=== PATIENT | male | born 1940 | race Caucasian/White ===

== ENCOUNTER → 2018-04-04 15:33 | Outpatient (CLI) | payer OTHER, SELFPAY ==
[2018-04-04 16:27] LABS: Add Manual Diff / Slide Review NO; Basophils Percent Auto 0.3 % (0-2); Eosinophils Percent Auto 1.8 % (2-4); Hematocrit 43.9 % (41-53); Hemoglobin 14.9 g/dL (13.5-17.5); Lymphocytes Percent Auto 18.8 % (25-40); Mean Corpuscular HGB Conc 33.9 % (30-36); Mean Corpuscular Volume 97.2 fL (80-100); Monocytes Percent Auto 9.9 % (3-14); Neutrophils Absolute Auto 5600 /uL (3000-5900); Neutrophils Percent Auto 69.2 % (50-75); Platelet Count 174 X10^3/uL (150-400); Red Blood Cell Count 4.51 X10^6/uL (4.5-5.9); Red Cell Distribution Width 14.7 % (11.6-14.8); White Blood Cell Count 8.1 X10^3/uL (4.5-11.0)
[2018-04-04 16:33] LABS: Alanine Aminotransferase 26 IU/L (21-72); Albumin 3.9 g/dL (3.5-5.0); Albumin Globulin Ratio 1.4 (1.0-2.8); Alkaline Phosphatase 66 U/L (38-126); Aspartate Aminotransferase 14 IU/L (17-59); BUN Creatinine Ratio 16.7 (6-22); Bilirubin Total 0.7 mg/dL (0.2-1.3); Blood Urea Nitrogen 15 mg/dL (9-20); Calcium 9.3 mg/dL (8.4-10.2); Carbon Dioxide 30 mmol/L (22-32); Chloride 100 mmol/L (98-107); Estimated Glomerular Filt Rate > 60.0 mL/min (>60); Globulin 2.7 g/dL (1.7-4.1); Glucose 102 mg/dL (80-110); HEMOLYSIS < 15 (0-50); Potassium 4.1 mmol/L (3.4-5.1); Sodium 142 mmol/L (137-145); Total Protein 6.6 g/dL (6.3-8.2)
[2018-04-04 17:04] LABS: TSH w/ Reflex to FT4 1.37 uIU/mL (0.47-4.68)
== END ==
PROVIDERS: PCP Family Medicine; Visit Provider Family Medicine
DX: K31.9 Disease of stomach and duodenum, unspecified (principal); D12.6 Benign neoplasm of colon, unspecified; R68.81 Early satiety; R61 Generalized hyperhidrosis; R63.4 Abnormal weight loss
CPT/HCPCS: 36415; 80053; 84443; 85025

== ENCOUNTER → 2018-04-09 13:33 | Outpatient (CLI) | payer OTHER, SELFPAY ==
[2018-04-12 14:24] LABS: Fecal Immunochemical Test NOT DETECTED
== END ==
PROVIDERS: PCP Family Medicine; Visit Provider Family Medicine
DX: R68.81 Early satiety (principal)
CPT/HCPCS: 82274

== ENCOUNTER → 2018-07-02 08:26 | Outpatient (CLI) | payer OTHER, SELFPAY ==
--- NOTE | 2018-07-02 09:16 | PM.TREADMILL ---
Cardiac Stress Test Report Referral & Results Date Patient Seen: 07/02/18 Indication: Coronary artery disease Rest ECG: Incomplete right bundle branch block Procedure Note: After both written and verbal informed consent the patient had an IV started by the diagnostic imaging RN and then was hooked up to the treadmill monitoring system. The patient was then injected with the Christelle scan material. The Cardiolite was then immediately administered. The patient spent an additional 2-3 minutes on the monitoring system before this was discontinued The patient had a normal response to all infused materials. Impression: Normal response to infuse materials. Perfusion imaging, which will determine status of possible ischemia, will be reported separately Please note: Actual ECG tracings can be found in the PACS system.
--- NOTE | 2018-07-03 13:53 | DI.NM.S_ITS ---
DATE OF SERVICE: 07/02/2018 PROCEDURE: Pharmacological perfusion study. INDICATION: Dyspnea on exertion with known history of bypass surgery in 2009, hypertension, hyperlipidemia. RADIOPHARMACEUTICAL: 26.4 mCi technetium-99m Myoview IV was injected at stress, and 24.7 mCi technetium-99m Myoview IV was injected at rest. CARDIAC STRESS: Patient underwent IV Lexiscan perfusion study under the supervision of an attending staff using standard IV Lexiscan protocol. He remained hemodynamically stable. Baseline rhythm was sinus with right bundle branch block. During stress, there were no new obvious ischemic changes. There were no significant arrhythmias. RAW DATA: There appears to be increased subdiaphragmatic activity. GATED STUDY: Stress LV ejection fraction 74%. I don't see any obvious wall motion abnormalities. Resting end-diastolic volume 83 mL. No transient ischemic dilatation. TID ratio 1.05 and lung/heart ratio 0.31, which is within normal limits. MYOCARDIAL PERFUSION SCAN: Stress supine, resting supine, and stress prone images were compared to each other. It appears to be that patient has predominantly fixed small-sized [id number] decreased perfusion of basal inferolateral wall, suggestive of prior infarction. In addition to that, there appears to be small-sized moderate reversible ischemia of mid anterior wall, extending into the distal anterior septum, sparing the distal anterior wall and anterior apex. CONCLUSION: 1. There is a small-sized moderate reversible ischemia of mid anterior wall extending into the distal anterior septum, sparing distal anterior wall and anterior apex. Patient also has [id number] infarction of basal inferolateral wall. In comparison to study of October 2016, basal inferolateral fixed defect is old. However, mid anterior wall reversible ischemia and distal anterior septum reversible ischemia appears to be new. At that time, the patient had mid anterior wall defect which got improved during prone images, but in this study, prone images also had mid anterior wall and distal anteroseptal defect which was not seen during resting supine images. This is an abnormal myocardial perfusion study. Clemente Greer - DISTRIBUTION SUPERVISOR/fn/kv doc#: [id number]/job#: [id number] dd: 07/03/2018 12:40:00 dt: 07/03/2018 13:44:00 DICTATING MD/COPIES TO: Ashli Serrato MD ; Augie Orellana MD COPIES MNE: ISMAEL ; RAMONA
== END ==
PROVIDERS: PCP Family Medicine; Visit Provider Internal Medicine Cardiovascular Disease
DX: I25.10 Atherosclerotic heart disease of native coronary artery without angina pectoris (principal); I45.19 Other right bundle-branch block
CPT/HCPCS: 78452; 93016; 93017; 93018; A9502; J2785

== ENCOUNTER → 2018-07-03 09:45 | Outpatient (CLI) | payer OTHER, SELFPAY ==
--- NOTE | 2018-07-03 | DI.ECHO.S_ITS ---
[facility] +---------+ : : [address] [place] : : : : [id number] : : : : Phone: [phone]---------+ Echocardiogram Report + + :Name: OSCAR LANCE Study Date: 07/03/2018 Height: 69 in : :[facility] Exam Location: [facility] Weight: 176 lb : : Gender: Male BSA: 2.0 m2 : :: 1940 Age: 78 yrs BP: 135/75 mmHg: :Reason For Study: CAD : : Performed By: Kera Page : :Referring: MARTITA PACHECO : + + Interpretation Summary Normal sinus rhythm. Normal LV size, wall thickness, wall motion and left ventricular systolic function. The ejection fraction is estimated to be 50-55%. There is aortic sclerosis without stenosis. Otherwise no significant valvular abnormalities. Moderate left atrial enlargement. Mild right atrial enlargement. No prior study available for comparison. Procedure: A two-dimensional transthoracic echocardiogram with color flow and Doppler was performed. The study quality was technically adequate. Prior with images only from 10/18/2007. The patient was in normal sinus rhythm during the exam. Left Ventricle: The left ventricle is normal in size. There is normal left ventricular wall thickness. The ejection fraction is estimated to be 50-55%. Right Ventricle: The right ventricle is mild to moderately dilated. The right ventricular systolic function is normal. Atria: The left atrium is moderately dilated. The right atrium is mildly dilated. There is no Doppler evidence for an interatrial shunt. Mitral Valve: The mitral valve leaflets appear thickened, but open well. There is mild mitral annular calcification. There is trace mitral regurgitation. Aortic Valve: The aortic valve is trileaflet. The aortic valve is moderately calcified. Leaflet mobility is minimally reduced. There is no hemodynamically significant valvular aortic stenosis. No aortic regurgitation is present. Tricuspid Valve: The tricuspid valve is normal in structure but is abnormal in function. There is trace tricuspid regurgitation. Right ventricular systolic pressure is estimated to be 22 mmHg plus the clinically estimated CVP which cannot be estimated on this exam. Pulmonic Valve: The pulmonic valve is not well visualized. There is a trace or physiologic amount of pulmonic regurgitation. Great Vessels: The aortic root is mildly dilated. The ascending aorta is at the upper limits of normal in size. The aortic arch could not be visualized. The pulmonary is not well visualized. The inferior vena cava was not visualized. Pericardium/ Pleura There is no pericardial effusion. There is no pleural effusion. MMode/2D Measurements & Calculations LVIDd: 5.3 cm LVOT diam: 2.1 cm LVIDs: 3.4 cm Ao root diam: 4.2 cm FS: 35.2 % asc Aorta Diam: 3.4 cm EPSS: 0.11 cm IVSd: 0.96 cm LVPWd: 0.73 cm LV larose. diameter/BSA (cm/m^2): 2.7 LV sys. diameter/BSA (cm/m^2): 1.8 LA A2 area: 26.0 cm2 RA long axis: 5.6 cm LA A4 area: 24.1 cm2 RA area: 15.0 cm2 LA length (vol): 6.4 cm RA vol: 34.2 ml LA vol: 83.1 ml RA : 17.5 ml/m2 LA vol index: 42.5 ml/m2 RVD1 (basal): 4.8 cm TAPSE: 1.4 cm Doppler Measurements & Calculations Ao V2 max: 133.0 cm/sec LVOT Max Gerald: 96.3 cm/sec Ao V2 mean: 93.3 cm/sec LV V1 max P.7 mmHg Ao max P.1 mmHg LV V1 VTI: 24.2 cm Ao mean P.9 mmHg KENIA(I,D): 2.7 cm2 Ao V2 VTI: 30.0 cm KENIA(V,D): 2.4 cm2 sev ratio: 0.81 KENIA indexed to BSA (cm^2/m^2): 1.4 MV E max gerald: 55.8 cm/sec TR max gerald: 235.7 cm/sec MV A max gerald: 55.8 cm/sec TR max P.2 mmHg MV E/A: 1.0 PA V2 max: 63.6 cm/sec Med Peak E' Gerald: 4.9 cm/sec PA V2 mean: 45.9 cm/sec E/E' med: 11.5 PA mean P.92 mmHg Lat Peak E' Gerald: 7.4 cm/sec PA Accel Time: 0.12 sec E/E' lat: 7.5 E/e' average: 9.5 MV dec time: 0.19 sec MV P1/2t: 55.1 msec MV P1/2t max gerald: 56.3 cm/sec MVA(P1/2t): 4.0 cm2 Reading Physician:07:13 PM
== END ==
PROVIDERS: PCP Family Medicine; Visit Provider Internal Medicine Cardiovascular Disease
DX: I35.8 Other nonrheumatic aortic valve disorders (principal); I25.10 Atherosclerotic heart disease of native coronary artery without angina pectoris
CPT/HCPCS: 93306

== ENCOUNTER 2019-06-27 10:30 | Outpatient (RCR) | payer OTHER, SELFPAY ==
--- NOTE | 2019-05-14 17:30 | PT.OIE ---
Current Diagnoses Muscle weakness (generalized) (05/14/19) Other abnormalities of gait and mobility (05/14/19) Other fatigue (05/14/19) Other reduced mobility (05/14/19) Past Medical History (Last Updated 04/07/18 @ 21:12 by Gladis Ryan DO) Sleep apnea, unspecified (Chronic 03/16/12) Gout, unspecified (Inactive) GERD (gastroesophageal reflux disease) (Chronic 03/16/12) Vascular dementia without behavioral disturbance (Chronic) Other and unspecified hyperlipidemia (Chronic) CAD (coronary atherosclerotic disease) (Chronic) Primary open angle glaucoma (POAG) (Chronic 03/16/12) Essential hypertension (Chronic) Macrocytosis without anemia (Chronic 04/07/14) Diverticulosis of large intestine without hemorrhage (Chronic 08/26/15) Tubular adenoma of colon (Resolved 08/26/15) Impaired cognition (Chronic 06/02/17) Coronary artery disease (Chronic) Family hx of alcoholism (Chronic) GERD (gastroesophageal reflux disease) (Chronic) Glaucoma (Chronic ~1994) Gout (Chronic ~1994) Hearing deficit (Chronic) Hyperlipidemia (Chronic) Hypertension (Chronic ~1992) Kidney stones (Chronic) Myocardial infarction (Chronic ~1997) Osteoarthritis (Chronic) Shoulder pain (Chronic) Sleep apnea (Chronic) Chickenpox (Resolved) Measles (Resolved) Mumps (Resolved ~1988) Retinal detachment (Resolved ~1994) Anesthesia (Inactive) Past Surgical History (Last Updated 04/05/18 @ 09:05 by Claudia Whitehead) History of hip replacement (~2008) History of vasectomy Status post appendectomy (~1996) Status post coronary artery bypass graft (~2008) Status post eye surgery (~1994) Status post tonsillectomy and adenoidectomy Provider Visit Care Team Role Provider Type Gladis Ryan DO Attending Provider Physician Primary Care Provider Specialty: [facility] Address: [address] [place] [address], [facility] Email: [email or web address] Physical Therapy Initial Evaluation PT-OP-A Visit Information Start: 05/14/19 17:32 Freq: Status: Active Protocol: Document 05/14/19 16:45 DCW (Rec: 05/14/19 17:54 DCW [id number]) Out-Patient Physical Therapy Visit Information Visit Information Visit Type Initial Evaluation Visit Start Time 16:45 Visit Stop Time 17:30 Total Visit Minutes 45 Visit Number 1 Number of EARTH MOVING MACHINE OPERATOR Visits 0 Evaluation Information Evaluation Date 05/14/19 PT-OP-B Current Condition Start: 05/14/19 17:32 Freq: Status: Active Protocol: Document 05/14/19 16:45 DCW (Rec: 05/14/19 17:54 [facility] [id number]) Current Condition History of Current Condition Onset Date 4 years Current Complaints Fatigue, weakness, difficulty with mobility History of Current Condition Pt is an 79 year old male presenting with a 4 year history of decreasing mobility . Pt notes he does not get to go out and do much, and feels like he is getting weaker and having more difficulty getting around. Pt notes he has not had any falls, and goes out and walks daily, however his admits that it is overall less than one block. Pt's medical history is complicated by dementia, which is a large limiting factor in what he is able to go out and do. Treatment Goals Patient/Caregiver Goals Pt and would like him to be able to go for longer walks , preferably ~1/2 mile Prior Functional Status Baseline Function- ADL's Needs Assist Baseline Function- Mobility Needs Assist Personal Factors Other Personal Factors That May Effect Vascular dementia, sleep apnea Therapy/Recovery , gout, GERD, CAD, HTN, [place] PT-OP-C Subjective Start: 05/14/19 17:32 Freq: Status: Active Protocol: Document 05/14/19 16:45 DCW (Rec: 05/14/19 17:54 [facility] [id number]) OP-PT Subjective Patient Comments Patient Comments I think it started getting worse about four years ago. Patient Reported Progress Worse Patient Questionnaires Lower Extremity Functional Scale LEFS Score = 23.75 LEFS Impairment 60 to 79% Impaired (Score 17- 31) OP-PT Pain Assessment Pain Assessment Grid Paper Pain Assessment Grid Completed Yes Location Right Posterior Hip Intensity 2 Scale Used Numeric (1 - 10) PT-OP-D Balance Start: 05/14/19 17:32 Freq: Status: Active Protocol: Document 05/14/19 16:45 DCW (Rec: 05/14/19 17:54 PRW [id number]) OP-PT Balance Assessment Sitting Balance Static Sitting Balance Ability Normal Dynamic Sitting Balance Ability Normal Standing Balance Static Standing Balance Ability Fair Balance Tests Ledezma Balance Test Ledezma Balance Test Score 36/56 Ledezma Impairment Rating 20 to 39% Impaired (Score 34- 44) Ledezma Balance Assessment Evaluation Sitting to Standing Ability Independent w/Hands Unsupported Stance Safely- 2 minutes Sitting Unsupported, Feet on Floor Safely- 2 minutes Standing to Sitting Ability Assist, Control w/Hands Transfer Ability Safely, Hand Use Unsupported Stance- Eyes Closed 3 seconds Unsupported Stance- Eyes Open Independent, <30 seconds Reaching Forward Standing Safely, 5 inches Pick- Up Object From Floor Independent/Safe Look Behind Shoulder - Standing Turns Sideways Only Turning 360 Degrees Turns slowly, but safely Unsupported Stance, Alternating Feet on 2 Steps w/Minimum Assist Stair Unsupported Tandem Stance Small Step- 30 seconds Unilateral Leg Stance Lifts Leg/Unable to Hold Total Score Ledezma Total Score (out of 56 points) 36 Ledezma Impairment Rating 20 to 39% Impaired (Score 34- 44) Pereira Fall Scale Copyright Permission PT-OP-E Functional Tests Start: 05/14/19 17:32 Freq: Status: Active Protocol: Document 05/14/19 16:45 DCW (Rec: 05/14/19 17:54 DCW [id number]) Functional Tests 6 Minute Walk Test Distance 536' Device Used Cane Comments Multiple rest breaks, stopped test after 5:27 Timed Up and Go (TUG) Score 13.61 seconds Comments 3-trial average (16.34, 13.10, 11.38) TUG Impairment Rating 20 to <40% Impaired (Score 12- 13) PT-OP-G Mobility & Gait Start: 05/14/19 17:32 Freq: Status: Active Protocol: Document 05/14/19 16:45 DCW (Rec: 05/14/19 17:54 DCW [id number]) OP Gait Assessment Gait Gait Assistance Required: Standby Assistance Distance (Feet) 536 Assistive Devices Assistive Device Straight Cane Gait Deviations General Gait Pattern Decreased Stride Length Decreased Feet Clearance Flexed Trunk Factors Limiting Gait Function Factors Limiting Gait Function Decreased Activity Tolerance Decreased Strength PT-OP-M Strength Start: 05/14/19 17:32 Freq: Status: Active Protocol: Document 05/14/19 16:45 DCW (Rec: 05/14/19 17:54 DCW [id number]) Hip Strength Hip Manual Muscle Testing Right Flexion (L2) 4 Good Abduction 4- Good- Adduction 5 Normal External Rotation 4+ Good+ Internal Rotation 4- Good- Left Flexion (L2) 4 Good Abduction 4- Good- Adduction 5 Normal External Rotation 4 Good Internal Rotation 4- Good- Knee Strength Knee Manual Muscle Testing Right Flexion (S2) 4 Good Extension (L3) 5 Normal Left Flexion (S2) 4- Good- Extension (L3) 4+ Good+ Ankle/Foot Strength Ankle and Foot Manual Muscle Testing Right Dorsiflexion (L4) 4 Good Plantarflexion (S1) 4 Good Left Dorsiflexion (L4) 4 Good Plantarflexion (S1) 4 Good PT-OP-T Assessment and Plan Start: 05/14/19 17:32 Freq: Status: Active Protocol: Document 05/14/19 16:45 DCW (Rec: 05/14/19 17:54 [facility] [id number]) Physical Therapy Assessment Rehab Potential Rehabilitation Potential Good Evaluation Complexity Number of Personal Factors/Comorbidities 3 or More Number of Body Systems Impaired 3 Clinical Presentation at Evaluation Evolving Impairments Impairments Activity Tolerance Balance Gait Strength Goals Five Impairment Pt had a 3-trial average of 13 .61 seconds during TUG Fpc Goal (LTG) Pt to display a 3-trial average of <10 seconds during TUG LTG Duration 07/15/19 Four Impairment Pt scores 36/56 on Ledezma Fpc Goal (LTG) Pt to score 43/56 on Ledezma Balance Score to demonstrate decreased falls risk LTG Duration 07/15/19 Three Impairment Pt's gait speed during 6 MWT is 1.49 ft/sec Fpc Goal (LTG) Pt to ambulate at a speed o 1. 97 ft/sec during 6 MWT (for a total distance of 709'), which would be suggestive of a decrease in potential further functional decline LTG Duration 07/15/19 Two Impairment Pt unable to walk a full block with his Fpc Goal (LTG) Pt to walk 1/2 mile with his using LRAD LTG Duration 07/15/19 One Impairment Pt does not have an appropriate home exercise program Short Term Goal (STG) Pt and his will be independent and compliant with an appropriate HEP STG Duration 06/14/19 Assessment Summary Assessment Pt presents with signs and symptoms of general deconditioning with declining balance and activity tolerance . Pt's score of 36/56 on the Ledezma is indicative of an increased falls risk, and a gait speed of 1.49 ft/sec is a sign of further functional decline in the future. Pt's case history is complicated by dementia, which has limited his ability to participate in most of his normal activities, leading to increased sedentary lifestyle. Pt should benefit from skilled therapy focusing on improving activity tolerance, balance training, LE strengthening, and gait safety. Physical Therapy Plan Frequency and Duration Frequency of Treatment 2x/Week Duration of Treatment 10 weeks Plan of Care Start Date 05/14/19 Plan of Care End Date 07/23/19 Therapeutic Interventions Therapeutic Interventions Aquatic Therapy Balance Training Gait Training Home Exercise Program Neuromuscular Re-education Patient/Caregiver Education Self-Care/Home Management Soft Tissue Mobilization Therapeutic Activities Therapeutic Exercises Next Visit Focus/Plan Next Note Type Treatment Note Next Visit Plan Balance training, strengthening, increasing activity tolerance
--- NOTE | 2019-05-14 17:30 | PT.OPPOC ---
Current Diagnoses Muscle weakness (generalized) (05/14/19) Other abnormalities of gait and mobility (05/14/19) Other fatigue (05/14/19) Other reduced mobility (05/14/19) Provider Visit Care Team Role Provider Type Gladis Ryan DO Attending Provider Physician Primary Care Provider Specialty: Family Practice Address: [address] [place] [address] Email: [email or web address] Plan Of Care PT-OP-T Assessment and Plan Start: 05/14/19 17:32 Freq: Status: Active Protocol: Document 05/14/19 16:45 DCW (Rec: 05/14/19 17:54 DCW [id number]) Physical Therapy Assessment Rehab Potential Rehabilitation Potential Good Evaluation Complexity Number of Personal Factors/Comorbidities 3 or More Number of Body Systems Impaired 3 Clinical Presentation at Evaluation Evolving Impairments Impairments Activity Tolerance Balance Gait Strength Goals Five Impairment Pt had a 3-trial average of 13 .61 seconds during TUG Conflicts Analyst Goal (LTG) Pt to display a 3-trial average of <10 seconds during TUG LTG Duration 07/15/19 Four Impairment Pt scores 36/56 on Ledezma Skilled Nursing Goal (LTG) Pt to score 43/56 on Ledezma Balance Score to demonstrate decreased falls risk LTG Duration 07/15/19 Three Impairment Pt's gait speed during 6 MWT is 1.49 ft/sec Conflicts Analyst Goal (LTG) Pt to ambulate at a speed o 1. 97 ft/sec during 6 MWT (for a total distance of 709'), which would be suggestive of a decrease in potential further functional decline LTG Duration 07/15/19 Two Impairment Pt unable to walk a full block with his Skilled Nursing Goal (LTG) Pt to walk 1/2 mile with his using LRAD LTG Duration 07/15/19 One Impairment Pt does not have an appropriate home exercise program Short Term Goal (STG) Pt and his will be independent and compliant with an appropriate HEP STG Duration 06/14/19 Assessment Summary Assessment Pt presents with signs and symptoms of general deconditioning with declining balance and activity tolerance . Pt's score of 36/56 on the Ledezma is indicative of an increased falls risk, and a gait speed of 1.49 ft/sec is a sign of further functional decline in the future. Pt's case history is complicated by dementia, which has limited his ability to participate in most of his normal activities, leading to increased sedentary lifestyle. Pt should benefit from skilled therapy focusing on improving activity tolerance, balance training, LE strengthening, and gait safety. Physical Therapy Plan Frequency and Duration Frequency of Treatment 2x/Week Duration of Treatment 10 weeks Plan of Care Start Date 05/14/19 Plan of Care End Date 07/23/19 Therapeutic Interventions Therapeutic Interventions Aquatic Therapy Balance Training Gait Training Home Exercise Program Neuromuscular Re-education Patient/Caregiver Education Self-Care/Home Management Soft Tissue Mobilization Therapeutic Activities Therapeutic Exercises Next Visit Focus/Plan Next Note Type Treatment Note Next Visit Plan Balance training, strengthening, increasing activity tolerance Plan of Care Dates Plan of Care Start Date 05/14/19 Plan of Care End Date 07/23/19 Please Sign and Return: I have reviewed this Plan of Care and certify that the skilled therapy services above are required to meet the patient?s needs. Physician Signature Date Printed Name and Credentials Clinical Instructor Signature Printed Name and Credentials
--- NOTE | 2019-05-17 12:56 | PT.OTN ---
Current Diagnoses Muscle weakness (generalized) (05/17/19) Other abnormalities of gait and mobility (05/17/19) Other fatigue (05/17/19) Other reduced mobility (05/17/19) Physical Therapy Treatment Note PT-OP-A Visit Information Start: 05/14/19 17:32 Freq: Status: Active Protocol: Document 05/17/19 12:15 DCW (Rec: 05/17/19 12:56 DCW [id number]) Out-Patient Physical Therapy Visit Information Visit Information Visit Type Treatment Note Visit Note Pt arrived 15 minutes late Visit Start Time 12:15 Visit Stop Time 12:45 Total Visit Minutes 30 Visit Number 2 Number of DIRECTOR OF BUSINESS DEVELOPMENT Visits 0 Evaluation Information Evaluation Date 05/14/19 PT-OP-B Current Condition Start: 05/14/19 17:32 Freq: Status: Active Protocol: Document 05/14/19 16:45 DCW (Rec: 05/14/19 17:54 DCW [id number]) Current Condition History of Current Condition Onset Date 4 years Current Complaints Fatigue, weakness, difficulty with mobility History of Current Condition Pt is an 79 year old male presenting with a 4 year history of decreasing mobility . Pt notes he does not get to go out and do much, and feels like he is getting weaker and having more difficulty getting around. Pt notes he has not had any falls, and goes out and walks daily, however his admits that it is overall less than one block. Pt's medical history is complicated by dementia, which is a large limiting factor in what he is able to go out and do. Treatment Goals Patient/Caregiver Goals Pt and would like him to be able to go for longer walks , preferably ~1/2 mile Prior Functional Status Baseline Function- ADL's Needs Assist Baseline Function- Mobility Needs Assist Personal Factors Other Personal Factors That May Effect Vascular dementia, sleep apnea Therapy/Recovery , gout, GERD, CAD, HTN, [place] PT-OP-C Subjective Start: 05/14/19 17:32 Freq: Status: Active Protocol: Document 05/14/19 16:45 DCW (Rec: 05/14/19 17:54 DCW [id number]) OP-PT Subjective Patient Comments Patient Comments I think it started getting worse about four years ago. Patient Reported Progress Worse Patient Questionnaires Lower Extremity Functional Scale LEFS Score = 23.75 LEFS Impairment 60 to 79% Impaired (Score 17- 31) OP-PT Pain Assessment Pain Assessment Grid Paper Pain Assessment Grid Completed Yes Location Right Posterior Hip Intensity 2 Scale Used Numeric (1 - 10) PT-OP-D Balance Start: 05/14/19 17:32 Freq: Status: Active Protocol: Document 05/14/19 16:45 DCW (Rec: 05/14/19 17:54 DCW [id number]) OP-PT Balance Assessment Sitting Balance Static Sitting Balance Ability Normal Dynamic Sitting Balance Ability Normal Standing Balance Static Standing Balance Ability Fair Balance Tests Ledezma Balance Test Ledezma Balance Test Score 36/56 Ledezma Impairment Rating 20 to 39% Impaired (Score 34- 44) Ledezma Balance Assessment Evaluation Sitting to Standing Ability Independent w/Hands Unsupported Stance Safely- 2 minutes Sitting Unsupported, Feet on Floor Safely- 2 minutes Standing to Sitting Ability Assist, Control w/Hands Transfer Ability Safely, Hand Use Unsupported Stance- Eyes Closed 3 seconds Unsupported Stance- Eyes Open Independent, <30 seconds Reaching Forward Standing Safely, 5 inches Pick- Up Object From Floor Independent/Safe Look Behind Shoulder - Standing Turns Sideways Only Turning 360 Degrees Turns slowly, but safely Unsupported Stance, Alternating Feet on 2 Steps w/Minimum Assist Stair Unsupported Tandem Stance Small Step- 30 seconds Unilateral Leg Stance Lifts Leg/Unable to Hold Total Score Ledezma Total Score (out of 56 points) 36 Ledezma Impairment Rating 20 to 39% Impaired (Score 34- 44) Pereira Fall Scale Copyright Permission PT-OP-E Functional Tests Start: 05/14/19 17:32 Freq: Status: Active Protocol: Document 05/14/19 16:45 DCW (Rec: 05/14/19 17:54 DCW [id number]) Functional Tests 6 Minute Walk Test Distance 536' Device Used Cane Comments Multiple rest breaks, stopped test after 5:27 Timed Up and Go (TUG) Score 13.61 seconds Comments 3-trial average (16.34, 13.10, 11.38) TUG Impairment Rating 20 to <40% Impaired (Score 12- 13) PT-OP-G Mobility & Gait Start: 05/14/19 17:32 Freq: Status: Active Protocol: Document 05/14/19 16:45 DCW (Rec: 05/14/19 17:54 DCW [id number]) OP Gait Assessment Gait Gait Assistance Required: Standby Assistance Distance (Feet) 536 Assistive Devices Assistive Device Straight Cane Gait Deviations General Gait Pattern Decreased Stride Length Decreased Feet Clearance Flexed Trunk Factors Limiting Gait Function Factors Limiting Gait Function Decreased Activity Tolerance Decreased Strength PT-OP-M Strength Start: 05/14/19 17:32 Freq: Status: Active Protocol: Document 05/14/19 16:45 DCW (Rec: 05/14/19 17:54 DCW [id number]) Hip Strength Hip Manual Muscle Testing Right Flexion (L2) 4 Good Abduction 4- Good- Adduction 5 Normal External Rotation 4+ Good+ Internal Rotation 4- Good- Left Flexion (L2) 4 Good Abduction 4- Good- Adduction 5 Normal External Rotation 4 Good Internal Rotation 4- Good- Knee Strength Knee Manual Muscle Testing Right Flexion (S2) 4 Good Extension (L3) 5 Normal Left Flexion (S2) 4- Good- Extension (L3) 4+ Good+ Ankle/Foot Strength Ankle and Foot Manual Muscle Testing Right Dorsiflexion (L4) 4 Good Plantarflexion (S1) 4 Good Left Dorsiflexion (L4) 4 Good Plantarflexion (S1) 4 Good PT-OP-Q Treatments Start: 05/14/19 17:32 Freq: Status: Active Protocol: Document 05/17/19 12:15 DCW (Rec: 05/17/19 12:56 DCW [id number]) Cardio Equipment Recumbent Elliptical (Biodex) Duration (Minutes) 5 Resistance 5 Seat Position 10 Gym Equipment Shuttle Recovery Unilateral Squats Resistance 37# Shuttle Recovery Platform Stable Bilateral Squats Resistance 75# Shuttle Recovery Platform Stable Therapeutic Exercises Other Exercises Resisted Side-stepping Other Exercise Name Resisted Side-stepping Resistance Yellow Equipment Used T-band Neuro Re-Education Treatment Balance Activities Standing Marching Details Standing Marching Surface Green Foam Double leg stance Details DL stance Surface Jaeger Foam Semi-tandem stance Details Semi-tandem stance Surface Firm Equipment @ rail PT-OP-T Assessment and Plan Start: 05/14/19 17:32 Freq: Status: Active Protocol: Document 05/17/19 12:15 DCW (Rec: 05/17/19 12:56 DCW [id number]) Physical Therapy Assessment Impairments Impairments Activity Tolerance Balance Gait Strength Goals Five Impairment Pt had a 3-trial average of 13 .61 seconds during TUG Barrel Raiser Helper Goal (LTG) Pt to display a 3-trial average of <10 seconds during TUG LTG Duration 07/15/19 Four Impairment Pt scores 36/56 on Ledezma Halfway Goal (LTG) Pt to score 43/56 on Ledezma Balance Score to demonstrate decreased falls risk LTG Duration 07/15/19 Three Impairment Pt's gait speed during 6 MWT is 1.49 ft/sec Barrel Raiser Helper Goal (LTG) Pt to ambulate at a speed o 1. 97 ft/sec during 6 MWT (for a total distance of 709'), which would be suggestive of a decrease in potential further functional decline LTG Duration 07/15/19 Two Impairment Pt unable to walk a full block with his Barrel Raiser Helper Goal (LTG) Pt to walk 1/2 mile with his using LRAD LTG Duration 07/15/19 One Impairment Pt does not have an appropriate home exercise program Short Term Goal (STG) Pt and his will be independent and compliant with an appropriate HEP STG Duration 06/14/19 Assessment Summary Assessment Pt required seated rest break 15 minutes into 30 minute session, and required repeated directions and verbal cues for safety during his appointment. Physical Therapy Plan Frequency and Duration Frequency of Treatment 2x/Week Duration of Treatment 10 weeks Plan of Care Start Date 05/14/19 Plan of Care End Date 07/23/19 Therapeutic Interventions Therapeutic Interventions Aquatic Therapy Balance Training Gait Training Home Exercise Program Neuromuscular Re-education Patient/Caregiver Education Self-Care/Home Management Soft Tissue Mobilization Therapeutic Activities Therapeutic Exercises Next Visit Focus/Plan Next Note Type Treatment Note Next Visit Plan Balance training, strengthening, increasing activity tolerance
--- NOTE | 2019-05-20 12:51 | PT.OTN ---
Current Diagnoses Muscle weakness (generalized) (05/20/19) Other abnormalities of gait and mobility (05/20/19) Other fatigue (05/20/19) Other reduced mobility (05/20/19) Physical Therapy Treatment Note PT-OP-A Visit Information Start: 05/14/19 17:32 Freq: Status: Active Protocol: Document 05/20/19 09:45 AMB (Rec: 05/20/19 09:59 AMB [id number]) Out-Patient Physical Therapy Visit Information Visit Information Visit Type Treatment Note Visit Note Pt arrived 5 min late Visit Start Time 09:50 Visit Stop Time 10:30 Total Visit Minutes 40 Visit Number 3 PT-OP-B Current Condition Start: 05/14/19 17:32 Freq: Status: Active Protocol: Document 05/14/19 16:45 DCW (Rec: 05/14/19 17:54 DCW [id number]) Current Condition History of Current Condition Onset Date 4 years Current Complaints Fatigue, weakness, difficulty with mobility History of Current Condition Pt is an 79 year old male presenting with a 4 year history of decreasing mobility . Pt notes he does not get to go out and do much, and feels like he is getting weaker and having more difficulty getting around. Pt notes he has not had any falls, and goes out and walks daily, however his admits that it is overall less than one block. Pt's medical history is complicated by dementia, which is a large limiting factor in what he is able to go out and do. Treatment Goals Patient/Caregiver Goals Pt and would like him to be able to go for longer walks , preferably ~1/2 mile Prior Functional Status Baseline Function- ADL's Needs Assist Baseline Function- Mobility Needs Assist Personal Factors Other Personal Factors That May Effect Vascular dementia, sleep apnea Therapy/Recovery , gout, GERD, CAD, HTN, [place] PT-OP-C Subjective Start: 05/14/19 17:32 Freq: Status: Active Protocol: Document 05/20/19 09:45 AMB (Rec: 05/20/19 09:59 AMB [id number]) OP-PT Subjective Patient Comments Patient Comments Pt reports shortness of breath limits his exercise. PT-OP-D Balance Start: 05/14/19 17:32 Freq: Status: Active Protocol: Document 05/14/19 16:45 DCW (Rec: 05/14/19 17:54 [facility] [id number]) OP-PT Balance Assessment Sitting Balance Static Sitting Balance Ability Normal Dynamic Sitting Balance Ability Normal Standing Balance Static Standing Balance Ability Fair Balance Tests Ledezma Balance Test Ledezma Balance Test Score 36/56 Ledezma Impairment Rating 20 to 39% Impaired (Score 34- 44) Ledezma Balance Assessment Evaluation Sitting to Standing Ability Independent w/Hands Unsupported Stance Safely- 2 minutes Sitting Unsupported, Feet on Floor Safely- 2 minutes Standing to Sitting Ability Assist, Control w/Hands Transfer Ability Safely, Hand Use Unsupported Stance- Eyes Closed 3 seconds Unsupported Stance- Eyes Open Independent, <30 seconds Reaching Forward Standing Safely, 5 inches Pick- Up Object From Floor Independent/Safe Look Behind Shoulder - Standing Turns Sideways Only Turning 360 Degrees Turns slowly, but safely Unsupported Stance, Alternating Feet on 2 Steps w/Minimum Assist Stair Unsupported Tandem Stance Small Step- 30 seconds Unilateral Leg Stance Lifts Leg/Unable to Hold Total Score Ledezma Total Score (out of 56 points) 36 Ledezma Impairment Rating 20 to 39% Impaired (Score 34- 44) Pereira Fall Scale Copyright Permission PT-OP-E Functional Tests Start: 05/14/19 17:32 Freq: Status: Active Protocol: Document 05/14/19 16:45 DCW (Rec: 05/14/19 17:54 [facility] [id number]) Functional Tests 6 Minute Walk Test Distance 536' Device Used Cane Comments Multiple rest breaks, stopped test after 5:27 Timed Up and Go (TUG) Score 13.61 seconds Comments 3-trial average (16.34, 13.10, 11.38) TUG Impairment Rating 20 to <40% Impaired (Score 12- 13) PT-OP-G Mobility & Gait Start: 05/14/19 17:32 Freq: Status: Active Protocol: Document 05/14/19 16:45 DCW (Rec: 05/14/19 17:54 DCW [id number]) OP Gait Assessment Gait Gait Assistance Required: Standby Assistance Distance (Feet) 536 Assistive Devices Assistive Device Straight Cane Gait Deviations General Gait Pattern Decreased Stride Length Decreased Feet Clearance Flexed Trunk Factors Limiting Gait Function Factors Limiting Gait Function Decreased Activity Tolerance Decreased Strength PT-OP-M Strength Start: 05/14/19 17:32 Freq: Status: Active Protocol: Document 05/14/19 16:45 DCW (Rec: 05/14/19 17:54 DCW [id number]) Hip Strength Hip Manual Muscle Testing Right Flexion (L2) 4 Good Abduction 4- Good- Adduction 5 Normal External Rotation 4+ Good+ Internal Rotation 4- Good- Left Flexion (L2) 4 Good Abduction 4- Good- Adduction 5 Normal External Rotation 4 Good Internal Rotation 4- Good- Knee Strength Knee Manual Muscle Testing Right Flexion (S2) 4 Good Extension (L3) 5 Normal Left Flexion (S2) 4- Good- Extension (L3) 4+ Good+ Ankle/Foot Strength Ankle and Foot Manual Muscle Testing Right Dorsiflexion (L4) 4 Good Plantarflexion (S1) 4 Good Left Dorsiflexion (L4) 4 Good Plantarflexion (S1) 4 Good PT-OP-Q Treatments Start: 05/14/19 17:32 Freq: Status: Active Protocol: Document 05/20/19 09:45 AMB (Rec: 05/20/19 10:11 AMB [id number]) Cardio Equipment Recumbent Elliptical (Biodex) Duration (Minutes) 5 Resistance 5 Seat Position 10 Neuro Re-Education Treatment Balance Activities Standing Marching Details Standing Marching Surface Green Foam Double leg stance Details DL stance Surface Jaeger Foam Semi-tandem stance Details Semi-tandem stance Surface Firm Equipment @ rail PT-OP-T Assessment and Plan Start: 05/14/19 17:32 Freq: Status: Active Protocol: Document 05/20/19 09:45 AMB (Rec: 05/20/19 10:11 AMB [id number]) Physical Therapy Assessment Assessment Summary Assessment Pt arrived late and then needed a long bathroom break. Continues to require verbal cues for safety. Physical Therapy Plan Next Visit Focus/Plan Next Note Type Treatment Note Next Visit Plan Balance training, strengthening, increasing activity tolerance
--- NOTE | 2019-06-27 11:11 | PT.OTN ---
Current Diagnoses Muscle weakness (generalized) (06/27/19) Other abnormalities of gait and mobility (06/27/19) Other fatigue (06/27/19) Other reduced mobility (06/27/19) Physical Therapy Treatment Note PT-OP-A Visit Information Start: 05/14/19 17:32 Freq: Status: Active Protocol: Document 06/27/19 10:30 DCW (Rec: 06/27/19 11:11 DCW [id number]) Out-Patient Physical Therapy Visit Information Visit Information Visit Type Treatment Note Visit Note Pt took 10 minute bathroom break mid-way through session Visit Start Time 10:30 Visit Stop Time 11:15 Total Visit Minutes 35 Visit Number 4 Number of EQUIPMENT SCHEDULER Visits 0 Evaluation Information Evaluation Date 05/14/19 PT-OP-B Current Condition Start: 05/14/19 17:32 Freq: Status: Active Protocol: Document 05/14/19 16:45 DCW (Rec: 05/14/19 17:54 DCW [id number]) Current Condition History of Current Condition Onset Date 4 years Current Complaints Fatigue, weakness, difficulty with mobility History of Current Condition Pt is an 79 year old male presenting with a 4 year history of decreasing mobility . Pt notes he does not get to go out and do much, and feels like he is getting weaker and having more difficulty getting around. Pt notes he has not had any falls, and goes out and walks daily, however his admits that it is overall less than one block. Pt's medical history is complicated by dementia, which is a large limiting factor in what he is able to go out and do. Treatment Goals Patient/Caregiver Goals Pt and would like him to be able to go for longer walks , preferably ~1/2 mile Prior Functional Status Baseline Function- ADL's Needs Assist Baseline Function- Mobility Needs Assist Personal Factors Other Personal Factors That May Effect Vascular dementia, sleep apnea Therapy/Recovery , gout, GERD, CAD, HTN, [place] PT-OP-C Subjective Start: 05/14/19 17:32 Freq: Status: Active Protocol: Document 06/27/19 10:30 DCW (Rec: 06/27/19 11:11 DCW [id number]) OP-PT Subjective Patient Comments Patient Comments Pt reports he has been doing fairly well today. PT-OP-D Balance Start: 05/14/19 17:32 Freq: Status: Active Protocol: Document 05/14/19 16:45 DCW (Rec: 05/14/19 17:54 DCW [id number]) OP-PT Balance Assessment Sitting Balance Static Sitting Balance Ability Normal Dynamic Sitting Balance Ability Normal Standing Balance Static Standing Balance Ability Fair Balance Tests Ledezma Balance Test Ledezma Balance Test Score 36/56 Ledezma Impairment Rating 20 to 39% Impaired (Score 34- 44) Ledezma Balance Assessment Evaluation Sitting to Standing Ability Independent w/Hands Unsupported Stance Safely- 2 minutes Sitting Unsupported, Feet on Floor Safely- 2 minutes Standing to Sitting Ability Assist, Control w/Hands Transfer Ability Safely, Hand Use Unsupported Stance- Eyes Closed 3 seconds Unsupported Stance- Eyes Open Independent, <30 seconds Reaching Forward Standing Safely, 5 inches Pick- Up Object From Floor Independent/Safe Look Behind Shoulder - Standing Turns Sideways Only Turning 360 Degrees Turns slowly, but safely Unsupported Stance, Alternating Feet on 2 Steps w/Minimum Assist Stair Unsupported Tandem Stance Small Step- 30 seconds Unilateral Leg Stance Lifts Leg/Unable to Hold Total Score Ledezma Total Score (out of 56 points) 36 Ledezma Impairment Rating 20 to 39% Impaired (Score 34- 44) Pereira Fall Scale Copyright Permission PT-OP-E Functional Tests Start: 05/14/19 17:32 Freq: Status: Active Protocol: Document 05/14/19 16:45 DCW (Rec: 05/14/19 17:54 [facility] [id number]) Functional Tests 6 Minute Walk Test Distance 536' Device Used Cane Comments Multiple rest breaks, stopped test after 5:27 Timed Up and Go (TUG) Score 13.61 seconds Comments 3-trial average (16.34, 13.10, 11.38) TUG Impairment Rating 20 to <40% Impaired (Score 12- 13) PT-OP-G Mobility & Gait Start: 05/14/19 17:32 Freq: Status: Active Protocol: Document 05/14/19 16:45 DCW (Rec: 05/14/19 17:54 DC [id number]) OP Gait Assessment Gait Gait Assistance Required: Standby Assistance Distance (Feet) 536 Assistive Devices Assistive Device Straight Cane Gait Deviations General Gait Pattern Decreased Stride Length Decreased Feet Clearance Flexed Trunk Factors Limiting Gait Function Factors Limiting Gait Function Decreased Activity Tolerance Decreased Strength PT-OP-M Strength Start: 05/14/19 17:32 Freq: Status: Active Protocol: Document 05/14/19 16:45 DCW (Rec: 05/14/19 17:54 DCW [id number]) Hip Strength Hip Manual Muscle Testing Right Flexion (L2) 4 Good Abduction 4- Good- Adduction 5 Normal External Rotation 4+ Good+ Internal Rotation 4- Good- Left Flexion (L2) 4 Good Abduction 4- Good- Adduction 5 Normal External Rotation 4 Good Internal Rotation 4- Good- Knee Strength Knee Manual Muscle Testing Right Flexion (S2) 4 Good Extension (L3) 5 Normal Left Flexion (S2) 4- Good- Extension (L3) 4+ Good+ Ankle/Foot Strength Ankle and Foot Manual Muscle Testing Right Dorsiflexion (L4) 4 Good Plantarflexion (S1) 4 Good Left Dorsiflexion (L4) 4 Good Plantarflexion (S1) 4 Good PT-OP-Q Treatments Start: 05/14/19 17:32 Freq: Status: Active Protocol: Document 06/27/19 10:30 DCW (Rec: 06/27/19 11:11 DCW [id number]) Cardio Equipment Recumbent Stepper (Sci-Fit) Duration (Minutes) 5 Resistance 3 Seat Position 11 Gym Equipment Shuttle Recovery Unilateral Squats Resistance 37# Shuttle Recovery Platform Stable Bilateral Squats Resistance 75# Shuttle Recovery Platform Stable Therapeutic Exercises Other Exercises Resisted Side-stepping Other Exercise Name Resisted Side-stepping Resistance Yellow Equipment Used T-band Neuro Re-Education Treatment Balance Activities Standing Marching Details Standing Marching Surface Green Foam Semi-tandem stance Details Semi-tandem stance Surface Firm Equipment @ rail PT-OP-T Assessment and Plan Start: 05/14/19 17:32 Freq: Status: Active Protocol: Document 06/27/19 10:30 DCW (Rec: 06/27/19 11:11 DCW [id number]) Physical Therapy Assessment Impairments Impairments Activity Tolerance Balance Gait Strength Goals Five Impairment Pt had a 3-trial average of 13 .61 seconds during TUG Nursing Home Goal (LTG) Pt to display a 3-trial average of <10 seconds during TUG LTG Duration 07/15/19 Four Impairment Pt scores 36/56 on Ledezma Nursing Home Goal (LTG) Pt to score 43/56 on Ledezma Balance Score to demonstrate decreased falls risk LTG Duration 07/15/19 Three Impairment Pt's gait speed during 6 MWT is 1.49 ft/sec Nursing Home Goal (LTG) Pt to ambulate at a speed o 1. 97 ft/sec during 6 MWT (for a total distance of 709'), which would be suggestive of a decrease in potential further functional decline LTG Duration 07/15/19 Two Impairment Pt unable to walk a full block with his Nursing Home Goal (LTG) Pt to walk 1/2 mile with his using LRAD LTG Duration 07/15/19 One Impairment Pt does not have an appropriate home exercise program Short Term Goal (STG) Pt and his will be independent and compliant with an appropriate HEP STG Duration 06/14/19 Assessment Summary Assessment Pt still requiring multiple rest breaks throughout session , unable to tolerate any extended activity. Physical Therapy Plan Frequency and Duration Frequency of Treatment 2x/Week Duration of Treatment 10 weeks Plan of Care Start Date 05/14/19 Plan of Care End Date 07/23/19 Therapeutic Interventions Therapeutic Interventions Aquatic Therapy Balance Training Gait Training Home Exercise Program Neuromuscular Re-education Patient/Caregiver Education Self-Care/Home Management Soft Tissue Mobilization Therapeutic Activities Therapeutic Exercises Next Visit Focus/Plan Next Note Type Treatment Note Next Visit Plan Balance training, strengthening, increasing activity tolerance
--- NOTE | 2019-08-27 15:10 | PT.OPDS ---
Current Diagnoses Muscle weakness (generalized) (06/27/19) Other abnormalities of gait and mobility (06/27/19) Other fatigue (06/27/19) Other reduced mobility (06/27/19) Visit Care Team Role Provider Type Gladis Ryan DO Attending Provider Physician Primary Care Provider Specialty: Family Practice Address: [address] [place] [address], [address], [facility] Email: [email or web address] Visit Number Visit Number 4 Discharge Summary PT-OP-B Current Condition Start: 05/14/19 17:32 Freq: Status: Active Protocol: Document 05/14/19 16:45 DCW (Rec: 05/14/19 17:54 DCW [id number]) Current Condition History of Current Condition Onset Date 4 years Current Complaints Fatigue, weakness, difficulty with mobility History of Current Condition Pt is an 79 year old male presenting with a 4 year history of decreasing mobility . Pt notes he does not get to go out and do much, and feels like he is getting weaker and having more difficulty getting around. Pt notes he has not had any falls, and goes out and walks daily, however his admits that it is overall less than one block. Pt's medical history is complicated by dementia, which is a large limiting factor in what he is able to go out and do. Treatment Goals Patient/Caregiver Goals Pt and would like him to be able to go for longer walks , preferably ~1/2 mile Prior Functional Status Baseline Function- ADL's Needs Assist Baseline Function- Mobility Needs Assist Personal Factors Other Personal Factors That May Effect Vascular dementia, sleep apnea Therapy/Recovery , gout, GERD, CAD, HTN, [place] PT-OP-C Subjective Start: 05/14/19 17:32 Freq: Status: Active Protocol: Document 06/27/19 10:30 DCW (Rec: 06/27/19 11:11 DCW [id number]) OP-PT Subjective Patient Comments Patient Comments Pt reports he has been doing fairly well today. PT-OP-D Balance Start: 05/14/19 17:32 Freq: Status: Active Protocol: Document 05/14/19 16:45 DCW (Rec: 05/14/19 17:54 DCW [id number]) OP-PT Balance Assessment Sitting Balance Static Sitting Balance Ability Normal Dynamic Sitting Balance Ability Normal Standing Balance Static Standing Balance Ability Fair Balance Tests Ledezma Balance Test L[place] Balance Test Score 36/56 L[place] Impairment Rating 20 to 39% Impaired (Score 34- 44) [place] Balance Assessment Evaluation Sitting to Standing Ability Independent w/Hands Unsupported Stance Safely- 2 minutes Sitting Unsupported, Feet on Floor Safely- 2 minutes Standing to Sitting Ability Assist, Control w/Hands Transfer Ability Safely, Hand Use Unsupported Stance- Eyes Closed 3 seconds Unsupported Stance- Eyes Open Independent, <30 seconds Reaching Forward Standing Safely, 5 inches Pick- Up Object From Floor Independent/Safe Look Behind Shoulder - Standing Turns Sideways Only Turning 360 Degrees Turns slowly, but safely Unsupported Stance, Alternating Feet on 2 Steps w/Minimum Assist Stair Unsupported Tandem Stance Small Step- 30 seconds Unilateral Leg Stance Lifts Leg/Unable to Hold Total Score Ledezma Total Score (out of 56 points) 36 [place] Impairment Rating 20 to 39% Impaired (Score 34- 44) Pereira Fall Scale Copyright Permission PT-OP-E Functional Tests Start: 05/14/19 17:32 Freq: Status: Active Protocol: Document 05/14/19 16:45 DCW (Rec: 05/14/19 17:54 DCW [id number]) Functional Tests 6 Minute Walk Test Distance 536' Device Used Cane Comments Multiple rest breaks, stopped test after 5:27 Timed Up and Go (TUG) Score 13.61 seconds Comments 3-trial average (16.34, 13.10, 11.38) TUG Impairment Rating 20 to <40% Impaired (Score 12- 13) PT-OP-G Mobility & Gait Start: 05/14/19 17:32 Freq: Status: Active Protocol: Document 05/14/19 16:45 DCW (Rec: 05/14/19 17:54 DCW [id number]) OP Gait Assessment Gait Gait Assistance Required: Standby Assistance Distance (Feet) 536 Assistive Devices Assistive Device Straight Cane Gait Deviations General Gait Pattern Decreased Stride Length, Decreased Feet Clearance, Flexed Trunk Factors Limiting Gait Function Factors Limiting Gait Function Decreased Activity Tolerance, Decreased Strength PT-OP-M Strength Start: 05/14/19 17:32 Freq: Status: Active Protocol: Document 05/14/19 16:45 DCW (Rec: 05/14/19 17:54 DCW [id number]) Hip Strength Hip Manual Muscle Testing Right Flexion (L2) 4 Good Abduction 4- Good- Adduction 5 Normal External Rotation 4+ Good+ Internal Rotation 4- Good- Left Flexion (L2) 4 Good Abduction 4- Good- Adduction 5 Normal External Rotation 4 Good Internal Rotation 4- Good- Knee Strength Knee Manual Muscle Testing Right Flexion (S2) 4 Good Extension (L3) 5 Normal Left Flexion (S2) 4- Good- Extension (L3) 4+ Good+ Ankle/Foot Strength Ankle and Foot Manual Muscle Testing Right Dorsiflexion (L4) 4 Good Plantarflexion (S1) 4 Good Left Dorsiflexion (L4) 4 Good Plantarflexion (S1) 4 Good PT-OP-T Assessment and Plan Start: 05/14/19 17:32 Freq: Status: Active Protocol: Document 08/27/19 15:09 DCW (Rec: 08/27/19 15:10 DCW [id number]) Physical Therapy Assessment Goals Five Impairment Pt had a 3-trial average of 13 .61 seconds during TUG Jail Goal (LTG) Pt to display a 3-trial average of <10 seconds during TUG LTG Duration 07/15/19 Four Impairment Pt scores 36/56 on Ledezma Jail Goal (LTG) Pt to score 43/56 on Ledezma Balance Score to demonstrate decreased falls risk LTG Duration 07/15/19 Three Impairment Pt's gait speed during 6 MWT is 1.49 ft/sec [employer] Writer Prose Goal (LTG) Pt to ambulate at a speed o 1. 97 ft/sec during 6 MWT (for a total distance of 709'), which would be suggestive of a decrease in potential further functional decline LTG Duration 07/15/19 Two Impairment Pt unable to walk a full block with his [employer] Writer Prose Goal (LTG) Pt to walk 1/2 mile with his using LRAD LTG Duration 07/15/19 One Impairment Pt does not have an appropriate home exercise program Short Term Goal (STG) Pt and his will be independent and compliant with an appropriate HEP STG Duration 06/14/19 Assessment Summary Assessment Pt did not schedule any further visits following his last visit, and now has not been seen in two months. Pt will be discharged from skilled therapy at this time. Physical Therapy Plan Discharge Physical Therapy Discharge Reasons No Longer Attending PT Next Visit Focus/Plan Next Note Type Discharge Summary
== END 2019-09-04 16:28 ==
LOC: PHYS 10:30
PROVIDERS: PCP Family Medicine; Visit Provider Family Medicine
DX: Z74.09 Other reduced mobility (principal); M62.81 Muscle weakness (generalized); R26.89 Other abnormalities of gait and mobility; R53.83 Other fatigue
CPT/HCPCS: 97110; 97112; 97162

== ENCOUNTER → 2019-07-01 09:50 | Outpatient (CLI) | payer OTHER, SELFPAY ==
[2019-07-01 11:42] LABS: Alanine Aminotransferase 18 IU/L (21-72); Albumin 4.3 g/dL (3.5-5.0); Albumin Globulin Ratio 1.4 (1.0-2.8); Alkaline Phosphatase 70 U/L (38-126); Aspartate Aminotransferase 19 IU/L (17-59); Bilirubin Total 1.1 mg/dL (0.2-1.3); Blood Urea Nitrogen 13 mg/dL (9-20); Calcium 9.7 mg/dL (8.4-10.2); Carbon Dioxide 30 mmol/L (22-32); Chloride 100 mmol/L (98-107); Cholesterol 133 mg/dL (140-199); Estimated Glomerular Filt Rate > 60.0 mL/min (>60); Globulin 3.1 g/dL (1.7-4.1); Glucose 106 mg/dL (80-110); HDL Cholesterol 57 mg/dL (40-60); HEMOLYSIS < 15 (0-50); LDL Cholesterol Calculated 47 mg/dL (<100); Potassium 4.9 mmol/L (3.4-5.1); Sodium 141 mmol/L (137-145); Total Protein 7.4 g/dL (6.3-8.2); Triglycerides 144 mg/dL (35-150)
== END ==
PROVIDERS: PCP Family Medicine; Visit Provider Family Medicine
DX: I25.10 Atherosclerotic heart disease of native coronary artery without angina pectoris (principal); E78.5 Hyperlipidemia, unspecified
CPT/HCPCS: 36415; 80053; 80061

== ENCOUNTER → 2020-09-04 11:05 | Outpatient (CLI) | payer OTHER, SELFPAY ==
[2020-09-04 12:17] LABS: BUN Creatinine Ratio 12.9 (6-22); Blood Urea Nitrogen 11 mg/dL (9-20); Calcium 9.2 mg/dL (8.4-10.2); Carbon Dioxide 28 mmol/L (22-32); Chloride 100 mmol/L (98-107); Estimated Glomerular Filt Rate > 60.0 mL/min (>60); Glucose 126 mg/dL (80-110); HEMOLYSIS < 15 (0-50); Potassium 4.2 mmol/L (3.4-5.1); Sodium 136 mmol/L (137-145)
== END ==
PROVIDERS: PCP Student in an Organized Health Care Education/Training Program; Referring Provider Student in an Organized Health Care Education/Training Program; Visit Provider Student in an Organized Health Care Education/Training Program
DX: I10 Essential (primary) hypertension (principal)
CPT/HCPCS: 36415; 80048

== ENCOUNTER → 2021-04-15 10:28 | Outpatient (CLI) | payer OTHER, SELFPAY ==
--- NOTE | 2021-04-15 | DI.RAD.S_ITS ---
PROCEDURE: FL BARIUM SWALLOW W SPEECH INDICATIONS: Unspecified foreign body in respiratory tract, part unspecif COMPARISON: TECHNIQUE: Examination was conducted in conjunction with speech pathology per standard protocol. In the lateral projection, filming was performed of the patient swallowing. AP projection filming may also be performed with patient swallowing. COMPARISON: [facility], , BARIUM SWALLOW WITH SPEECH, 06/08/2015, 12:44. FINDINGS: Function: The oral preparatory phase appears normal, with proper containment. The subsequent oral propulsive phase, pharyngeal phase, and esophageal phase of swallowing also appear normal with all proffered substances. There is laryngotracheal penetration but no sara aspiration. No pathologic vallecular pooling. Morphology: No cricopharyngeal bar is identified. No cervical esophageal webs. No Zenker's diverticulum. No strictures. IMPRESSION: Tracheal laryngeal penetration. No sara aspiration. Please see speech pathologist's report for detail. Dictated by: Shaila Marques M.D. on 04/15/2021 at 11:29 Approved by: Shaila Marques M.D. on 04/15/2021 at 11:30
--- NOTE | 2021-04-15 17:14 | ST.SWALLOW ---
Visit Care Team Role Provider Type Kendrick Jean MD Attending Provider Physician Primary Care Provider Referring Provider Specialty: Internal Medicine Address: [address] [place] [address], [address] [place] [address], [id number] Email: [email or web address] Modified Barium Swallow Study [employer]ATOR [employer] HE[employer] SERVICES Modified Barium Swallow Study Start: 04/15/21 12:05 Freq: Status: Active Protocol: Document 04/15/21 12:07 LNK (Rec: 04/15/21 12:34 LNK [id number]) Modified Barium Swallow Study Total Time Visit Start Time 10:30 Visit Stop Time 11:00 Total Visit Minutes [address] Benito Reason for Referral dysphagia/coughing with meals Setting Setting Outpatient Care Patient Information Identification Type Name,Date of Patient History Pt was seen for a Modified Barium Swallow Study (MBSS) at the referral of Dr. Benito. The pt's reported ongoing problems with eating. She is concerned that he is losing weight (peaked at 182 lbs in 2019), is frequently nauseated, and sometimes chokes when eating. The patient says he just does not feel like eating. According to Mrs. Greer, the pt has the greatest difficulty with liquids on a daily basis; less frequently with solids Subjective Observations The pt was seated in the fluoroscopy chair. Instructions and procedures were provided to the pt. He indicated that he understood and agrees to proceed. Patient Positioning Position View Lateral Imaging Lateral View Textures Administered Trials Presented Thin Liquid via Spoon,Thin Liquid via Cup,[place] Liquid via Spoon,[place] Liquid via Cup,Pudding Thick Liquid via Spoon,Regular Textures,Barium Tablet Oral Phase Source: MBSIMP (TM) (C) Bolus Specific Scoring Grid Lip Closure WFL Tongue Control During Bolus Hold WFL Bolus Prep/Mastication WFL Bolus Transport/Lingual Motion WFL A/P Lingual Propulsion Delay Yes Number of Seconds Delayed (seconds) 2-3+ seconds Oral Residue WFL Nasal Regurgitation No Additional Oral Phase Observations Pt's dentition is natural with no missing teeth and in good hygiene. Diadochokinesis was WFL. ROM and strength of structures adequare for mastication Pharyngeal Phase Source: MBSIMP (TM) (C) Bolus Specific Scoring Grid Delayed Initiation of Pharyngeal Swallow Yes: premature spillage to the valeculla Soft Palate Elevation WFL Tongue Base Strength/Range of Motion Mild Impairment Residue Along the Tongue Base Yes Clearance of Residue Along Tongue Base Minimal Impairment Laryngeal Elevation Moderate Impairment Anterior Hyoid Movement Moderate Impairment Epiglottic Range of Motion Moderate Impairment Clearance of Vallecular Residue Moderate Impairment Laryngeal Vestibular Closure Moderate Impairment Pharyngeal Stripping Wave Mild Impairment Posterior Pharyngeal Wall Residue No Upper Esophageal Sphincter Opening WFL Residue in the Pyriform Sinuses Yes Clearance of Residue in the Pyriform Minimal Impairment Sinuses Esophageal Clearance Upright Position WFL Pharyngoesophageal Backflow Observed No Additional Pharyngeal Phase Observations Premature spillage of the bolus to the valeculla was observed for all swallows. Laryngeal elevation and hyoid movement were both observed to be moderately reduced impacting the inversion of the epiglottis. The pt's reduction in hyolaryngeal elevation resulted a reduction of laryngopharyngeal contact, with the tip of the epiglottis against the posterior pharyngeal wall ( open airway) at the start of the swallow. The weight of the bolus would then push the epiglottal tip downward as the bolus passed. An incomplete seal of the airway resulted in laryngotracheal penetration x7 (thin and nectar thick liquids as well as pooled residue). Small amounts of contrast were observed below the vocal folds entering the trachea x2. All instances of penetration/aspiration were silent. Cuing to clear throat was provided to attempt to clear residue, which was partially effective. Pt did produce a delayed throat clear/ cough after MBSS (~10 minutes) while discussing the results of the MBSS with his . A/P View Esophageal Observations Esophageal Function Apeared to be WFL Clinical Impressions Dysphagia Type moderate pharyngeal phase dysphagia Findings Silent laryngotracheal penetration x7 with residue remaining along the anterior wall of the thyroid cartilage and pooled on the vocal folds. Twice aspiration of a small amount of contrast was seen below the vocal folds, again silent. After the MBSS, while discussing the results with his , the pt was observed to clear his throat (delayed response to penetration). Pt is at risk for aspiration. Outpatient dysphagia therapy is recommended for linguapharyngeal exercises as well as development of swallow strategies. Pt's dementia is a factor in the implementation and carryover of therapeutic intervention. Rehabilitation Potential Fair Patient Appropriate for Therapy Yes: To establish safe swallow strategies Recommendations Diet Liquids Order [place] Diet Order Regular Medication Recommendation As Tolerated Additional Dietary Needs No Straws Aspiration Precautions Recommended Precautions Upright at 90 Degrees,Small Bites/Sips,Chin Tuck,Effortful Swallow,Double Swallow Treatment Plan Therapy Recommendations Outpatient Speech Therapy Compensatory Strategies Recommendations Sitting Upright (90 deg),Chin Tuck,Double Swallow,No Straw, Liquids from Cup,Small Bites and Sips
== END ==
PROVIDERS: PCP Student in an Organized Health Care Education/Training Program; Referring Provider Student in an Organized Health Care Education/Training Program; Visit Provider Student in an Organized Health Care Education/Training Program
DX: T17.908A Unspecified foreign body in respiratory tract, part unspecified causing other injury, initial encounter (principal)
CPT/HCPCS: 74230; 92611

== ENCOUNTER → 2021-06-09 13:12 | Outpatient (CLI) | payer OTHER, SELFPAY ==
--- NOTE | 2021-06-09 13:13 | DI.MRI.S_ITS ---
PROCEDURE: MR LUMBAR SPINE WO/W CON INDICATIONS: Bladder and bowel incontinence; bilateral bilat low ext weakness, back pain TECHNIQUE: Noncontrast sagittal T1 spin echo and T2 fast spin echo, sagittal STIR, axial T1 and T2 fast spin echo through the lumbar spine. In cases with scoliosis, additional coronal T2 fast spin echo may be performed. After the administration of contrast, sagittal and axial T1 spin echo with fat saturation through the lumbar spine. COMPARISON: None. FINDINGS: Image quality: Excellent. Alignment and curvature: Normal lumbar vertebral body height and alignment. Marrow: No suspicious focal marrow signal abnormality. There is periarticular bone marrow edema associated with the L4-L5 and L5-S1 facets, left greater than right. There is a peripherally enhancing synovial cyst arising from the posterior and inferior margin of the left L5-S1 facet (series 9, image 14 and series 10 image 27. This presumably represents enhancing degenerative arthritic change, although septic arthritis would be difficult to strictly exclude. There is no suspicious focal marrow signal abnormality otherwise. Spinal cord: Normal position and appearance of the conus. Regional soft tissues: Prevertebral and paraspinous soft tissues are otherwise normal in appearance. T12-L1: No spinal canal or neural foraminal stenosis. L1-L2: No spinal canal or neural foraminal stenosis. Facet hypertrophy with small facet effusions. L2-L3: No spinal canal stenosis. Foraminal components of a diffuse disc bulge contribute to mild bilateral neural foraminal narrowing in conjunction with facet hypertrophy. Small facet effusions with subchondral cystic change. L3-L4: Disc bulge flattens the ventral thecal sac. No mass effect upon the traversing L4 nerve roots. Foraminal components of the disc bulge and facet hypertrophy contribute to mild bilateral neural foraminal stenosis. Small facet effusions and subchondral cystic change present. L4-L5: Moderate to severe subarticular zone stenosis with probable impingement of the descending L5 nerve roots in both subarticular zones (series 5, image 25), due to a combination of diffuse disc bulge, broad-based posterior disc protrusion, bulky facet hypertrophy, and buckling of the ligamentum flavum. There is overall moderate spinal canal stenosis with crowding of the traversing nerve roots and some laxity of the nerve roots above this level suggesting an element of compression. Foraminal components of the disc bulge and facet hypertrophy contribute to moderate right and mild left neural foraminal stenosis. Facet effusions and subchondral cystic change. L5-S1: Disc bulge without mass effect upon the traversing S1 nerve roots. Mild bilateral neural foraminal narrowing. Facet effusions with subchondral cystic change. IMPRESSION: Moderate to severe subarticular zone stenosis at L4-L5 with suspected impingement of the descending L5 nerve roots. Moderate overall spinal canal stenosis at L4-L5 with some laxity of the nerve roots above this level suggesting an element of compression. Varying degrees of neural foraminal stenosis up to moderate. 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 This is a potential source of nonradicular axial back pain. Please see above discussion. Dictated by: Jeremy Calero M.D. on 06/09/2021 at 15:12 Approved by: Jeremy Calero M.D. on 06/09/2021 at 15:20
== END ==
PROVIDERS: PCP Student in an Organized Health Care Education/Training Program; Referring Provider Urology; Visit Provider Urology
DX: R15.9 Full incontinence of feces (principal); R32 Unspecified urinary incontinence; R29.898 Other symptoms and signs involving the musculoskeletal system; M54.5 Low back pain; M48.061 Spinal stenosis, lumbar region without neurogenic claudication; M48.07 Spinal stenosis, lumbosacral region; M47.816 Spondylosis without myelopathy or radiculopathy, lumbar region; M47.817 Spondylosis without myelopathy or radiculopathy, lumbosacral region; M71.38 Other bursal cyst, other site
CPT/HCPCS: 72158

== ENCOUNTER → 2021-10-04 13:59 | Outpatient (CLI) | payer OTHER, SELFPAY | PROVIDERS: PCP Student in an Organized Health Care Education/Training Program; Referring Provider Urology; Visit Provider Urology | DX: R30.0 Dysuria (principal); N35.912 Unspecified bulbous urethral stricture, male; R29.898 Other symptoms and signs involving the musculoskeletal system | CPT/HCPCS: 51798; 52000; 87086 ==

== ENCOUNTER → 2022-05-13 13:31 | Outpatient (CLI) | payer OTHER, SELFPAY ==
[2022-05-13 14:58] LABS: BUN Creatinine Ratio 10.9 (6-22); Blood Urea Nitrogen 10 mg/dL (9-20); Calcium 8.9 mg/dL (8.4-10.2); Carbon Dioxide 29 mmol/L (22-32); Chloride 100 mmol/L (98-107); Estimated Glomerular Filt Rate > 60 mL/min (>60); Glucose 107 mg/dL (80-110); HEMOLYSIS < 15 (0-50); Potassium 4.1 mmol/L (3.4-5.1); Sodium 138 mmol/L (137-145); Uric Acid 5.5 mg/dL (3.5-8.5)
== END ==
PROVIDERS: PCP Student in an Organized Health Care Education/Training Program; Referring Provider Student in an Organized Health Care Education/Training Program; Visit Provider Student in an Organized Health Care Education/Training Program
DX: I10 Essential (primary) hypertension (principal); M10.9 Gout, unspecified
CPT/HCPCS: 36415; 80048; 84550